=== PATIENT | male | born 1965 | race Two or more races ===

== ENCOUNTER 2020-01-18 13:33 | Emergency (ER) | payer OTHER ==
[~2020-01-18] VITALS: Ht 167.6 cm; Wt 113.4 kg
[2020-01-18] MEDS ORDERED: KETOROLAC TROMETH 60MG/2ML VIAL IM ONE (17:00)
[2020-01-18 17:15] VITALS: BP 128/90
[2020-01-18] MEDS ORDERED: ACETAMINOPHEN/CODEINE#3 (300/30mg) TAB PO ONE (17:15)
== END 2020-01-18 17:33 | disposition home or self-care (01) ==
LOC: ER 13:33
DX: K08.89 Other specified disorders of teeth and supporting structures (principal); R51 Headache